=== PATIENT | female | born 1955 ===

== ENCOUNTER 2017-06-26 12:38 | Emergency (ER) | payer OTHER ==
[2017-06-26 13:17] VITALS: O2SAT 95
--- NOTE | 2017-06-26 14:11 | C.PDOC ---
History Of Present Illness L KNEE PAIN X 2 DAYS. ONSET AFTER CLIMBING STAIRS FELT A "POP" BEHIND THE KNEE. DENIES TWISTING OR DIRECT INJURY. INTERMIT L KNEE PROBLEMS "FOR A WHILE". + BRUISING BACK OF KNEE. NO OTHER ASSOC SX EXAM NAD EXT LLE NO CALF TEND, SWELL. L KNEE AROM WO DIFF. NO KNEE TEND. +BRUISING POST DISTAL THIGH. SKIN INTACT NO ERYTHEMA REMAINDE RNEG Time Seen by Provider: 06/26/17 13:57 Chief Complaint (Nursing): Lower Extremity Problem/Injury History Per: Patient History/Exam Limitations: no limitations Onset/Duration Of Symptoms: Days (2 days) Past Medical History Reviewed: Historical Data, Nursing Documentation, Vital Signs Vital Signs: Last Vital Signs Temp 98.5 F 06/26/17 13:13 Pulse 95 H 06/26/17 13:13 Resp 18 06/26/17 13:13 BP 140/77 06/26/17 13:13 Pulse Ox 95 06/26/17 14:47 - Medical History PMH: HTN Family History: States: No Known Family Hx - Social History Hx Alcohol Use: No Hx Substance Use: No - Immunization History Hx Influenza Vaccination: Yes Review Of Systems Except As Marked, All Systems Reviewed And Found Negative. Musculoskeletal: Positive for: Other ((+) left knee pain). Negative for: Leg Pain, Foot Pain Neurological: Negative for: Weakness, Numbness Physical Exam - Physical Exam Appears: Non-toxic, No Acute Distress Skin: Warm, Dry, No Rash, Other ((+) Bruising to the post distal thigh, skin intact, no erythema) Oral Mucosa: Moist Extremity: No Calf Tenderness (LLE), No Swelling (LLE), Other (Left knee, AROM w /o difficulty. No knee tenderness) Neurological/Psych: Oriented x3, Normal Speech, Normal Motor, Normal Sensation ED Course And Treatment O2 Sat by Pulse Oximetry: 95 (RA) Pulse Ox Interpretation: Normal - Other Rad L KNEE X-Ray: Interpreted by Me, Viewed By Me Interpretation: NEG; DJD Medical Decision Making Medical Decision Making: PLAN: * X-Ray - Left Knee * Motrin PO * Tylenol PO Disposition Counseled Patient/Family Regarding: Studies Performed, Diagnosis, Need For Followup, Rx Given - Disposition Referrals: Curtis Hudson III, MD [Staff Provider] - [facility] [Outside] [facility] [Outside] Disposition: HOME/ ROUTINE Disposition Time: 14:44 Condition: IMPROVED Prescriptions: Ibuprofen [Motrin] 600 mg PO Q6 #30 tab Instructions: Knee Sprain (ED), Osteoarthritis (ED) Forms: [facility] (Nepalese), Work Excuse Print Language: TELUGU - Clinical Impression Clinical Impression: Knee sprain, Arthritis - Scribe Statement The provider has reviewed the documentation as recorded by the Sandy Rodriguez Provider Attestation: All medical record entries made by the Sandy were at my direction and personally dictated by me. I have reviewed the chart and agree that the record accurately reflects my personal performance of the history, physical exam, medical decision making, and the department course for this patient. I have also personally directed, reviewed, and agree with the discharge instructions and disposition.
--- NOTE | 2017-06-26 15:19 | RAD ---
PROCEDURE: Left Knee Radiographs. HISTORY: COMPARISON: None available. FINDINGS: Examination limited by habitus. Rotated lateral view. BONES: No acute displaced fracture. Marked degenerative changes including osteophyte formation. JOINTS: No dislocation. Tricompartmental joint space narrowing with severe joint space narrowing of the patellofemoral compartment and medial compartment. JOINT EFFUSION: No significant joint effusion. OTHER FINDINGS: Vascular calcifications. IMPRESSION: Marked degenerative changes as above. No acute displaced fracture, dislocation, or significant joint effusion identified. If symptoms persist, or if there is continued clinical concern, x-ray follow-up in 7-10 days should be considered.
[2017-06-26 15:23] VITALS: BP 130/78; PULSE 90; RESP 20; TEMP 98.4
== END 2017-06-26 15:47 | disposition home or self-care (01) ==
LOC: C.ER 12:38
DX: S83.92XA Sprain of unspecified site of left knee, initial encounter (principal); X58.XXXA Exposure to other specified factors, initial encounter; M17.12 Unilateral primary osteoarthritis, left knee